=== PATIENT | male | born 2000 | race Two or more races ===

== ENCOUNTER 2018-06-25 15:53 | Emergency (ER) | payer OTHER ==
[~2018-06-25] VITALS: Ht 175.3 cm; Wt 73.9 kg
[2018-06-25 16:00] VITALS: BP 122/77
--- NOTE | 2018-06-25 16:14 | PHYS DOC ---
Adult General Chief Complaint Chief Complaint: FINGER INJURY [facility] HPI Patient is a 18-year-old male who presents with complaint of injury to his left middle finger that occurred about a week ago when it was crushed between a truck and trailer. He states that earlier today his right index finger was also crushed while working and he reports to pain in both fingers especially with range of motion. He rates pain as moderate. Review of Systems Review of Systems Constitutional: Denies fever or chills [] Respiratory: Denies cough or shortness of breath [] Cardiovascular: No additional information not addressed in HPI [] Musculoskeletal: Positive right index and left middle finger pain [] Physical Exam Physical Exam Constitutional: Well developed, well nourished, no acute distress, non-toxic appearance. [] Neck: Normal range of motion, no tenderness, supple, no stridor. [] Cardiovascular:Heart rate regular rhythm, no murmur [] Lungs & Thorax: Bilateral breath sounds clear to auscultation [] Extremities: Examination of left middle finger demonstrates tenderness to palpation around the PIP joint without soft tissue swelling or deformity. Right index finger demonstrates tenderness to palpation around the PIP without signs of soft tissue swelling or deformity. [] Neurologic: Alert and oriented X 3, no focal deficits noted. [] EKG EKG [] Radiology/Procedures Radiology/Procedures [] Impressions: X-rays of left middle and right index finger demonstrate no acute bony abnormalities. Course & Med Decision Making Course & Med Decision Making Pertinent Labs and Imaging studies reviewed. (See chart for details) [] Dragon Disclaimer Dragon Disclaimer This electronic medical record was generated, in whole or in part, using a voice recognition dictation system. Departure Departure: Impression: Primary Impression: Finger contusion Referrals: PCP,UNKNOWN (PCP) Problem Qualifiers Primary Impression: Finger contusion Encounter type: initial encounter Finger: unspecified finger Damage to nail status: without damage Qualified Codes: S60.00XA - Contusion of unspecified finger without damage to nail, initial encounter LOIS PETERSON Jr. DO Jun 25, 2018 16:14
--- NOTE | 2018-06-25 16:38 | RAD ---
FINGER(S) LEFT, FINGER(S) RIGHT History: LEFT 3RD DIGIT INJURY 1 WEEK AGO. Right thumb injury today. Comparison: None are available Three-view right thumb No evidence of acute fracture. No bone destruction. No evidence of dislocation. IMPRESSION: No acute fracture or dislocation. 3 view left third finger No evidence of acute fracture. No bone destruction or dislocation. No significant soft tissue abnormality. IMPRESSION: No evidence of acute fracture or dislocation. Electronically signed by: Hosea Kimble MD (06/25/2018 4:34 PM) [id number]
--- NOTE | 2018-06-25 16:38 | RAD ---
FINGER(S) LEFT, FINGER(S) RIGHT History: LEFT 3RD DIGIT INJURY 1 WEEK AGO. Right thumb injury today. Comparison: None are available Three-view right thumb No evidence of acute fracture. No bone destruction. No evidence of dislocation. IMPRESSION: No acute fracture or dislocation. 3 view left third finger No evidence of acute fracture. No bone destruction or dislocation. No significant soft tissue abnormality. IMPRESSION: No evidence of acute fracture or dislocation. Electronically signed by: Hosea Kimble MD (06/25/2018 4:34 PM) [id number]
== END 2018-06-25 16:55 | disposition home or self-care (01) ==
LOC: ER 15:53
DX: S60.032A Contusion of left middle finger without damage to nail, initial encounter (principal); S60.021A Contusion of right index finger without damage to nail, initial encounter; W23.0XXA Caught, crushed, jammed, or pinched between moving objects, initial encounter; Y93.89 Activity, other specified; Y92.89 Other specified places as the place of occurrence of the external cause; Y99.0 Civilian activity done for income or pay
CPT/HCPCS: 73140; 99283

== ENCOUNTER 2019-07-01 09:25 | Emergency (ER) | payer OTHER ==
[~2019-07-01] VITALS: Ht 175.3 cm; Wt 70.5 kg
[2019-07-01 09:35] VITALS: BP 127/80
[2019-07-01] MEDS ORDERED: POLY10DR EACHEYE (09:41)
--- NOTE | 2019-07-01 10:20 | PHYS DOC ---
Past History Past Medical History: Depression, Renal Disease Past Surgical History: No Surgical History Alcohol Use: None Drug Use: None Adult General Chief Complaint Chief Complaint: EYE PROBLEMS HPI HPI Patient is a [19-year-old male with left eye redness itching crusting in the morning and some drainage noted. No URI symptoms no sick contacts no fever no other symptoms at all does not wear contacts no injury to the eye Review of Systems Review of Systems Constitutional: Denies fever or chills [] Eyes: Denies change in visual acuity, redness, or eye pain [] HENT: Denies nasal congestion or sore throat [] Respiratory: Denies cough or shortness of breath [] Cardiovascular: No additional information not addressed in HPI [] GI: Denies abdominal pain, nausea, vomiting, bloody stools or diarrhea [] : Denies dysuria or hematuria [] Musculoskeletal: Denies back pain or joint pain [] Integument: Denies rash or skin lesions [] Neurologic: Denies headache, focal weakness or sensory changes [] Endocrine: Denies polyuria or polydipsia [] All other systems were reviewed and found to be within normal limits, except as documented in this note. Allergies Allergies Allergies Coded Allergies Type Severity Reaction Last Updated Verified No Known Drug Allergies 07/01/19 No Physical Exam Physical Exam Constitutional: Well developed, well nourished, no acute distress, non-toxic appearance. [] HENT: Normocephalic, atraumatic, bilateral external ears normal, oropharynx moist, no oral exudates, nose normal. [] Eyes: Conjunctival injection left greater than right there is some exudative drainage at the left conjunctiva cornea appears normal no ulcers seen. Visual acuity is intact patient can read the letters across the room on the glove container Pulmonary: Normal respiratory effort no increased work of breathing no obvious chest wall trauma Abdomen: Bowel sounds normal, soft, no tenderness, no masses, no pulsatile masses. [] Skin: Warm, dry, no erythema, no rash. [] Back: No tenderness, no CVA tenderness. [] Extremities: No tenderness, no cyanosis, no clubbing, ROM intact, no edema. [] Neurologic: Alert and oriented X 3, normal motor function, normal sensory function, no focal deficits noted. [] Psychologic: Affect normal, judgement normal, mood normal. [] Current Patient Data Vital Signs Vital Signs Date Time Temp Pulse Resp B/P (MAP) Pulse Ox O2 Delivery O2 Flow Rate FiO2 07/01/19 09:35 98.3 90 18 127/80 (96) 98 Room Air EKG EKG [] Radiology/Procedures Radiology/Procedures [] Course & Med Decision Making Course & Med Decision Making Pertinent Labs and Imaging studies reviewed. (See chart for details) []Suspect conjunctivitis probably bacterial given the pus seen on examination prescription for antibiotics was provided and recommended hygiene at home Dragon Disclaimer Dragon Disclaimer This electronic medical record was generated, in whole or in part, using a voice recognition dictation system. Departure Departure: Impression: Primary Impression: Conjunctivitis Disposition: HOME, SELF-CARE Condition: STABLE Patient Instructions: Conjunctivitis (Viral and Bacterial) Scripts Polymyxin B Sulf/Trimethoprim (POLYTRIM EYE DROPS) 10 Ml Drops 1 DROP EACHEYE Q6HRS for conjunctivitis for 5 Days, #10 ML Prov: SUNITHA JAMES MD 07/01/19 SUNITHA JAMES MD Jul 01, 2019 10:20
== END 2019-07-01 09:56 | disposition home or self-care (01) ==
LOC: ER 09:25
DX: H10.9 Unspecified conjunctivitis (principal); N18.9 Chronic kidney disease, unspecified
CPT/HCPCS: 99283

== ENCOUNTER 2019-07-12 09:02 | Emergency (ER) | payer OTHER ==
[~2019-07-12] VITALS: Ht 175.3 cm; Wt 70.5 kg
[~2019-07-12 09:02] MED LIST: POLY10DR EACHEYE
[2019-07-12 09:05] VITALS: BP 117/72
[2019-07-12] MEDS ORDERED: ERYT1OIN6 OP (09:37)
--- NOTE | 2019-07-12 09:38 | PHYS DOC ---
Past History Past Medical History: Depression, Renal Disease Past Surgical History: No Surgical History Alcohol Use: None Drug Use: None Adult General Chief Complaint Chief Complaint: EYE PROBLEMS [facility] HPI Patient is a 19-year-old male who presents with complaint of left eye swelling and drainage. Patient was seen here about a week ago for same complaint and was prescribed with antibiotic drops for pinkeye. Patient states that he use them for 7 or 8 days and he states that this morning he still notes that he is having purulent drainage. He denies any visual changes.[] Review of Systems Review of Systems Constitutional: Denies fever or chills [] Eyes: Denies change in visual acuity. Complains of very little drainage from left eye with redness and swelling [] HENT: Denies nasal congestion or sore throat [] Respiratory: Denies cough or shortness of breath [] Cardiovascular: No additional information not addressed in HPI [] Allergies Allergies Allergies Coded Allergies Type Severity Reaction Last Updated Verified No Known Drug Allergies 07/01/19 No Physical Exam Physical Exam Constitutional: Well developed, well nourished, no acute distress, non-toxic appearance. [] Eyes: PERRLA, EOMI, conjunctiva injection and drainage as noted. [] Neck: Normal range of motion, no tenderness, supple, no stridor. [] Cardiovascular:Heart rate regular rhythm, no murmur [] Lungs & Thorax: Bilateral breath sounds clear to auscultation [] EKG EKG [] Radiology/Procedures Radiology/Procedures [] Course & Med Decision Making Course & Med Decision Making Pertinent Labs and Imaging studies reviewed. (See chart for details) [] Dragon Disclaimer Dragon Disclaimer This electronic medical record was generated, in whole or in part, using a voice recognition dictation system. Departure Departure: Impression: Primary Impression: Conjunctivitis Disposition: HOME, SELF-CARE Condition: STABLE Referrals: WEI SORIA (PCP) Patient Instructions: Bacterial Conjunctivitis, Form - Return To Work Scripts Erythromycin Base (Erythromycin) 1 Gm Oint...g. 0.5 INCH OP TID for infection, #3.5 GM Prov: LOIS PETERSON Jr. DO 07/12/19 Problem Qualifiers Primary Impression: Conjunctivitis Conjunctivitis type: acute Acute conjunctivitis type: bacterial Late rality: left Qualified Codes: H10.32 - Unspecified acute conjunctivitis, left eye LOIS PETERSON Jr. DO Jul 12, 2019 09:37
== END 2019-07-12 09:57 | disposition home or self-care (01) ==
LOC: ER 09:02
DX: H10.32 Unspecified acute conjunctivitis, left eye (principal)
CPT/HCPCS: 99283